=== PATIENT | female | born 1950 | race Caucasian/White ===

== ENCOUNTER 2020-05-17 19:03 | Inpatient (IN) | payer MEDICARE, OTHER ==
[2020-05-17] VITALS (10 sets, daily range): BP systolic 88–98; BP diastolic 55–62
[~2020-05-17] VITALS: Ht 152 cm; Wt 71.8 kg
[2020-05-17] MEDS ORDERED: NS IV 1000 ML 1,000 ML IV SCH (20:17)
[2020-05-17] MEDS ORDERED: MELATONIN 3 MG TABLET PO PRN (20:30)
[2020-05-17] MEDS ORDERED: LOPERAMIDE 2 MG (IMODIUM) TABLET PO PRN (20:30)
[2020-05-17] MEDS ORDERED: CALCIUM CARBONATE 500 MG (TUMS) TAB.CHEW PO PRN (20:30)
[2020-05-17] MEDS ORDERED: ONDANSETRON 4 MG/2 ML (SDV) Z0FRAN IVP PRN (20:30)
[2020-05-17] MEDS ORDERED: diphenhydrAMINE 25 MG TAB (BENADRYL) PO PRN (20:30)
[2020-05-17] MEDS ORDERED: fentaNYL INJECTION 100 MCG/2 ML AMP IVP PRN (20:30)
[2020-05-17] MEDS ORDERED: ACETAMINOPHEN 500 MG TAB (TYLENOL) PO PRN (20:30)
[2020-05-17] MEDS ORDERED: DOCUSATE SODIUM 100 MG (COLACE) CAP PO PRN (20:30)
[2020-05-17] MEDS ORDERED: HYDROcodone/APAP 5 MG/325 MG (LORTAB) TAB PO PRN (20:30)
[2020-05-17] MEDS ORDERED: ENOXAPARIN 40 MG/0.4 ML (LOVENOX) SYR SC SCH (20:30)
[2020-05-17] MEDS ORDERED: ONDANSETRON 4 MG (ZOFRAN) ORAL DISSOLVE TAB PO PRN (20:30)
--- NOTE | 2020-05-17 20:50 | NUR ---
IAN LEÓN admitted to room 512-1, with an admitting diagnosis of Fever of unknown origin, on 05/17/20 from [place] ED via stretcher, accompanied by EMS staff.IAN LEÓN introduced to surroundings, call light, bed controls, phone, TV, temperature control, lights, meal times, smoking policy, visitor policy, side rail policy, bathrooms and showers. Patient Rights given to patient in the handbook. IAN LEÓN verbalizes understanding that [facility] is not responsible for the loss or damage to any personal effects or valuables that are kept in the patients possession during their hospitalization. The following Patient Care Plans were discussed with the patient: Discharge Planning, pain,activity, and diet. IAN LEÓN verbalizes understanding of Interdisciplinary Patient Education. Patient and/or family were informed about the Rapid Response Team and its purpose.
[2020-05-17] MEDS: SENNA W/DOCUSATE (SENOKOT S) TABLET PO SCH (21:04)
[2020-05-17] MEDS: polyethylene glycoL POWDER 17 GM (MIRALAX) PACK PO SCH (21:04)
[2020-05-17] MEDS ORDERED: cefTRIAXone 2 GM IV (ROCEPHIN) VIAL ONE (21:23)
[2020-05-17] MEDS ORDERED: WATER (STERILE) FOR INJECTION 0 ML ONE (21:23)
[2020-05-17] MEDS ORDERED: ENOXAPARIN 40 MG/0.4 ML (LOVENOX) SYR ONE (21:24)
[2020-05-17] MEDS ORDERED: NS IV 1000 ML 1,000 ML ONE (21:24)
[2020-05-17] MEDS: cefTRIAXone FOR IV USE 2,000 MG in WATER (STERILE) FOR INJECTION 20 ML IV SCH (21:33)
[2020-05-17 22:25] LABS: HEMOGLOBIN 11.7 G/DL (11.5-16.0); MEAN PLATELET VOLUME 11.3 FL (7.4-10.4); RED CELL DISTRIBUTION WIDTH 14.9 % (10.0-14.5); WHITE BLOOD COUNT 7.5 10^3/uL (4.3-11.0)
[2020-05-17 22:26] LABS: BILIRUBIN,URINE NEGATIVE (NEGATIVE); CLARITY,URINE CLEAR; COLOR,URINE YELLOW; GLUCOSE, URINE (UA) NEGATIVE (NEGATIVE); KETONES,URINE NEGATIVE (NEGATIVE); LEUKOCYTE ESTERASE ,URINE NEGATIVE (NEGATIVE); NITRITE,URINE NEGATIVE (NEGATIVE); PH,URINE 5.5 (5-9); PROTEIN,URINE NEGATIVE (NEGATIVE)
[2020-05-17 22:33] LABS: ALBUMIN 3.8 GM/DL (3.2-4.5); POTASSIUM 4.7 MMOL/L (3.6-5.0)
[2020-05-17 22:36] LABS: TOTAL PROTEIN 7.2 GM/DL (6.4-8.2)
[2020-05-17 22:37] LABS: BACTERIA,URINE TRACE /HPF
[2020-05-17 22:38] LABS: BILIRUBIN,TOTAL 0.3 MG/DL (0.1-1.0)
[2020-05-17 22:39] LABS: CREATININE SERUM 2.58 MG/DL (0.60-1.30)
--- NOTE | 2020-05-17 22:58 | NUR ---
Positive Covid 19, other labs and VS reported to Dr Lehman at this time. No new orders.
[2020-05-17] MEDS ORDERED: RT-ALBUTEROL INHALER HFA (VENTOLIN HFA) 18 GM IH PRN (23:30)
[2020-05-18] VITALS (18 sets, daily range): BP systolic 92–135; BP diastolic 51–74
[2020-05-18 03:54] LABS: BASOPHILS % (AUTO) 0 % (0-10); EOSINOPHILS % (AUTO) 0 % (0-10); HEMATOCRIT 32 % (35-52); HEMOGLOBIN 10.7 G/DL (11.5-16.0); LYMPHOCYTES # (AUTO) 0.7 X 10^3 (1.0-4.0); LYMPHOCYTES % (AUTO) 11 % (12-44); MEAN CORPUSCULAR HEMOGLOBIN 32 PG (25-34); MEAN CORPUSCULAR HGB CONC 34 G/DL (32-36); MEAN CORPUSCULAR VOLUME 96 FL (80-99); MEAN PLATELET VOLUME 11.1 FL (7.4-10.4); MONOCYTES % (AUTO) 18 % (0-12); NEUTROPHILS # (AUTO) 4.2 X 10^3 (1.8-7.8); NEUTROPHILS % (AUTO) 71 % (42-75); PLATELET COUNT 188 10^3/uL (130-400); RED CELL DISTRIBUTION WIDTH 15.2 % (10.0-14.5); WHITE BLOOD COUNT 5.9 10^3/uL (4.3-11.0)
[2020-05-18 04:04] LABS: ALBUMIN 3.6 GM/DL (3.2-4.5); POTASSIUM 4.6 MMOL/L (3.6-5.0)
[2020-05-18 04:05] LABS: CALCIUM 8.4 MG/DL (8.5-10.1)
[2020-05-18 04:06] LABS: TOTAL PROTEIN 6.7 GM/DL (6.4-8.2)
[2020-05-18 04:08] LABS: BILIRUBIN,TOTAL 0.2 MG/DL (0.1-1.0)
[2020-05-18 04:10] LABS: CREATININE SERUM 2.62 MG/DL (0.60-1.30)
[2020-05-18] MEDS ORDERED: LACTATED RINGERS 1,000 ML IV SCH (05:30)
[2020-05-18] MEDS ORDERED: SODIUM BICARB 8.4% 50 MEQ/50 ML VIAL IV ONE (05:30)
--- NOTE | 2020-05-18 05:31 | Pulmonary Consultation ---
History of Present Illness History of Present Illness Date Seen by Provider: May 18, 2020 Time Seen by Provider: 05:26 Date of Admission Allergies and Home Medications Allergies Coded Allergies: hydrocodone (Verified Allergy, Severe, Vomiting, 05/17/20) Past Rumvtai-Jmwhjs-Tudghm Hx Patient Social History Recent Foreign Travel: No Contact w/Someone Who Travel: No Recent Infectious Disease Expo: No Immunizations Up To Date Date of Pneumonia Vaccine: May 23, 2019 Past Medical History : No Family Medical History Diabetes mellitus 19 MOTHER, , Onset: G8 BROTHER, Onset: FH: leukemia 19 FATHER, , Onset:60 years & older Review of Systems Time Seen by Provider: 05:41 Sepsis Event Evaluation Height, Weight, BMI Height: '" Weight: lbs. oz. kg; 29.08 BMI Method: Exam Exam Vital Signs Date Time Temp Pulse Resp B/P (MAP) Pulse Ox O2 Delivery O2 Flow Rate FiO2 05/18/20 03:55 37.0 73 20 92/56 (68) 98 Room Air 05/18/20 03:25 97 Room Air 05/18/20 01:40 36.9 62 17 92/51 (65) 100 Room Air 05/18/20 01:00 70 05/17/20 23:10 98 Room Air 05/17/20 23:10 38.0 62 95 21 05/17/20 23:00 37.6 62 20 88/55 (66) 98 Room Air 05/17/20 22:00 62 20 91/59 (70) 95 Room Air 05/17/20 21:45 71 18 90/60 (70) 96 Room Air 05/17/20 21:30 64 20 89/62 (71) 97 Room Air 05/17/20 21:15 65 17 90/59 (69) 96 Room Air 05/17/20 21:11 38.0 68 18 98/60 95 Room Air 05/17/20 21:00 62 20 95/61 (72) 95 Room Air 05/17/20 20:58 84 05/17/20 20:50 98 Room Air 05/17/20 20:50 38.0 68 18 98/60 (73) 95 Room Air I & O 05/18/20 07:00 Intake Total 95 ml Output Total 200 ml Balance -105 ml Height & Weight Height: '" Weight: lbs. oz. kg; 29.08 BMI Method: Results Lab Laboratory Tests 05/17/20 22:10 05/18/20 03:40 Assessment/Plan Assessment/Plan COVID + -PT is not currently requiring oxygen currently -PT is having rigors -Check ddimer and ferritin -PCT is elevated -CXR is pending Prerenal ARF with anion gapped metabolic acidosis -repeat LA -Check mag and phos -Check urine Na, Cr, urea, and eosinophills -Check bilateral renal US. -Increase IVF and give a liter bolus -monitor close -Give 2 amps of bicarb -May need to start bicarb gtt. -repeat labs at 1300 Hypotension -Increase IVF -Check LA -Transfer to ICU Hyponatremia -monitor Anemia -Monitor Transfer to ICU for close monitoring. SHON DERAS DO May 18, 2020 05:31
[2020-05-18 05:52] LABS: PHOSPHORUS 5.9 MG/DL (2.3-4.7)
[2020-05-18] MEDS: LACTATED RINGERS 1,000 ML IV SCH ×3 (06:08→19:38)
[2020-05-18 06:41] LABS: ABG BASE EXCESS 6.2 MMOL/L (-2.5-2.5); ABG OXYGEN SATURATION 97 % (94-100); ABG PCO2 34 MMHG (35-45); ABG PH 7.55 (7.37-7.43); ABG PO2 67 MMHG (79-93); ABG TCO2 30.2 MMOL/L (21.0-31.0)
[2020-05-18 06:47] LABS: ALLENS TEST YES-POS; INSPIRED O2 RA; PATIENT TEMP 36.7; VENTILATOR NO
--- NOTE | 2020-05-18 08:18 | NUR ---
Received dietary consult for MST score. Note pt is COVID-19 positive, per chart review. Will monitor PO intake and have assessment at a later date. Sowmya Fowler, MS, RD, LD
--- NOTE | 2020-05-18 08:26 | Diagnostic Imaging Report ---
INDICATION: Fever. COMPARISON: None FINDINGS: Single frontal radiographic view of the chest was obtained and demonstrates moderate cardiomegaly and mild vascular congestion. Lungs are clear. There is no focal consolidation, large effusion, nor pneumothorax. Osseous structures show no gross acute abnormalities. Left-sided AICD is noted. IMPRESSION: 1. Moderate cardiomegaly and mild vascular congestion. Dictated by: Dictated on workstation # [id number]
[2020-05-18] MEDS: SENNA W/DOCUSATE (SENOKOT S) TABLET PO SCH ×2 (08:52→19:39)
[2020-05-18] MEDS: polyethylene glycoL POWDER 17 GM (MIRALAX) PACK PO SCH ×2 (08:52→19:39)
--- NOTE | 2020-05-18 09:41 | Diagnostic Imaging Report ---
INDICATION: Acute renal failure. PROCEDURE: Ultrasound abdomen complete. TECHNIQUE: Multiple real-time grayscale images were obtained of the abdomen in various projections. The liver is normal in size at 14 cm. No discrete liver mass is detected. The portal vein is patent and shows normal direction of flow. Gallbladder surgically absent. No biliary duct dilatation is seen. Pancreas is obscured by bowel gas. Spleen is normal in size at 10 cm. Majority of the aorta is obscured by bowel gas. IVC is patent. Kidneys are without calculi or hydronephrosis. There is no ascites. IMPRESSION: 1. Somewhat compromised study due to overlying bowel gas. No acute features detected. Dictated by: Dictated on workstation # [id number]
[2020-05-18] MEDS: CALCIUM ACETATE 667 MG CAP (PHOSLO) PO SCH ×3 (10:42→18:08)
[2020-05-18] MEDS: dexAMETHasone 6 MG TAB (DECADRON) PO SCH (10:42)
--- NOTE | 2020-05-18 11:00 | NUR ---
I contacted pts RN and requested they convey [facility] availability via phone if the pt or family had a need.
[2020-05-18] MEDS ORDERED: WARF4TAB70 PO (15:18)
[2020-05-18] MEDS ORDERED: INSU100I14 SC (15:18)
[2020-05-18] MEDS ORDERED: LORA10TA7 PO (15:18)
[2020-05-18] MEDS ORDERED: ALLO300T2 PO (15:18)
[2020-05-18] MEDS ORDERED: CALC10009 PO (15:18)
[2020-05-18] MEDS ORDERED: WARF1TAB82 PO (15:18)
[2020-05-18] MEDS ORDERED: CARV3.122 PO (15:18)
[2020-05-18] MEDS ORDERED: SODI325T PO (15:18)
[2020-05-18] MEDS ORDERED: OMEG-35 PO (15:18)
[2020-05-18] MEDS ORDERED: POTA10TA PO (15:18)
[2020-05-18] MEDS ORDERED: FURO40TA4 PO (15:18)
[2020-05-18] MEDS ORDERED: LISI-556 PO (15:18)
[2020-05-18] MEDS ORDERED: ACET325C7 PO (15:18)
[2020-05-18] MEDS ORDERED: FERR325T18 PO (15:18)
[2020-05-18] MEDS ORDERED: PRAV40TA2 PO (15:18)
[2020-05-18] MEDS ORDERED: CHOL100048 PO (15:18)
[2020-05-18] MEDS ORDERED: SPIR25TA5 PO (15:18)
--- NOTE | 2020-05-18 15:20 | NUR ---
SPOKE WITH THE PT (I CALLED HER ROOM PHONE), WENT THRU THE EXT MED HISTORY AND CALLED [facility] IN [place] TO COMPLETE THE MED REC THE PT WAS ABLE TO TELL ME THE NAMES OF SOME OF HER MEDICATIONS AND I WENT THRU THE EXT MED HISTORY AND WAS ABLE TO NAME MEDICATIONS SHE FORGOT. PT WAS ABLE TO TELL ME HOW/WHEN SHE TAKES EACH MEDICATION. ACCORDING TO THE PT SHE TAKES LANTUS SOLOSTAR PENS 55 UNITS HS, HOWEVER HER PREFERRED PHARMACY HAS NEVER FILLED THIS (IN SEP 2019 THEY RECEIVED AN ORDER FROM ARNALDO MORENO BUT IT WASNT COVERED BY INSURANCE). I CALLED [facility] IN [place] TO SEE IF THEY HAVE EVER DISPENSED THIS TO THE PT AND THEY DONT HAVE ANY RECORD OF GIVING IT TO HER THROUGH THE REPOSITORY OR PALS. I TRIED TO CALL THE PATIENT BACK TO GET CLARIFICATION BUT THE LINE IS BUSY. UNTIL I CAN SPEAK WITH THE PT I WILL NOT ADD THIS TO THE MED REC OTC MEDS: VIT D TYLENOL DAVID PT WAS BROUGHT HERE FROM [facility] IN [place] AND THE PACKET THAT CAME WITH HER HAD A MEDICATION LIST- METOLAZONE AND ULORIC WERE LISTED HOWEVER PT IS NO LONGER TAKING THESE Addendum: 05/19/20 at 1151 by DIANE YEPEZ [facility] I WAS ABLE TO REACH THE PT TODAY (VIA HER ROOM PHONE) AND GOT CLARIFICATION ON LANTUS. PATIENT SAYS SHE GETS IT FROM A FAMILY FRIEND IN [place], [place] WHO GETS HER PRESCRIPTION FROM THE PA AND HAS AN OVERSTOCK AMOUNT AND THEREFORE GIVES SOME TO IAN.
[2020-05-18 15:37] LABS: ALBUMIN 3.3 GM/DL (3.2-4.5); BILIRUBIN,TOTAL 0.3 MG/DL (0.1-1.0); CALCIUM 8.6 MG/DL (8.5-10.1); CREATININE SERUM 1.81 MG/DL (0.60-1.30); POTASSIUM 4.4 MMOL/L (3.6-5.0); TOTAL PROTEIN 6.3 GM/DL (6.4-8.2)
[2020-05-18] MEDS ORDERED: WATER (STERILE) FOR INJECTION 20 ML ONE (20:00)
[2020-05-18] MEDS ORDERED: cefTRIAXone 2 GM IV (ROCEPHIN) VIAL ONE (20:00)
[2020-05-18] MEDS: cefTRIAXone FOR IV USE 2,000 MG in WATER (STERILE) FOR INJECTION 20 ML IV SCH (20:21)
[2020-05-18] MEDS: inSUlin ASPART (NovoLOG) 1 UNIT/0.01 ML (CHARGE PER UNIT) SC SCH (20:23)
[2020-05-18] MEDS ORDERED: ENOXAPARIN 30 MG/0.3 ML (LOVENOX) SYR SC SCH (21:00)
[2020-05-19] VITALS (12 sets, daily range): BP systolic 95–151; BP diastolic 63–76
[2020-05-19] MEDS: LACTATED RINGERS 1,000 ML IV SCH ×4 (02:11→18:28)
[2020-05-19 02:47] LABS: BASOPHILS % (AUTO) 0 % (0-10); EOSINOPHILS % (AUTO) 0 % (0-10); HEMATOCRIT 35 % (35-52); HEMOGLOBIN 11.6 G/DL (11.5-16.0); LYMPHOCYTES # (AUTO) 0.5 X 10^3 (1.0-4.0); LYMPHOCYTES % (AUTO) 9 % (12-44); MEAN CORPUSCULAR HEMOGLOBIN 32 PG (25-34); MEAN CORPUSCULAR HGB CONC 33 G/DL (32-36); MEAN CORPUSCULAR VOLUME 95 FL (80-99); MEAN PLATELET VOLUME 11.4 FL (7.4-10.4); MONOCYTES # (AUTO) 0.6 X 10^3 (0.0-1.0); MONOCYTES % (AUTO) 11 % (0-12); NEUTROPHILS # (AUTO) 4.4 X 10^3 (1.8-7.8); NEUTROPHILS % (AUTO) 80 % (42-75); PLATELET COUNT 164 10^3/uL (130-400); RED CELL DISTRIBUTION WIDTH 14.7 % (10.0-14.5); WHITE BLOOD COUNT 5.4 10^3/uL (4.3-11.0)
[2020-05-19 02:52] LABS: CALCIUM 8.5 MG/DL (8.5-10.1)
[2020-05-19 02:57] LABS: CREATININE SERUM 1.43 MG/DL (0.60-1.30); PHOSPHORUS 3.4 MG/DL (2.3-4.7)
[2020-05-19 02:59] LABS: MAGNESIUM 1.8 MG/DL (1.6-2.4)
--- NOTE | 2020-05-19 05:14 | Pulmonary Progress Note ---
Subjective Time Seen by a Provider: 05:18 Subjective/Events-last exam No complications noted. Sepsis Event Evaluation Height, Weight, BMI Height: '" Weight: lbs. oz. kg; 29.08 BMI Method: Focused Exam Lactate Level 05/17/20 22:10: Lactic Acid Level 0.85 05/18/20 06:00: Lactic Acid Level 1.03 Exam Exam Vital Signs Date Time Temp Pulse Resp B/P (MAP) Pulse Ox O2 Delivery O2 Flow Rate FiO2 05/19/20 03:05 92 Room Air 05/19/20 03:00 79 27 124/73 (90) 95 Room Air 05/19/20 02:00 36.6 Room Air 05/19/20 02:00 80 18 123/63 (83) 93 Room Air 05/19/20 01:00 82 28 126/68 (87) 94 Room Air 05/19/20 01:00 85 05/19/20 00:00 72 18 123/63 (83) 97 Room Air 05/18/20 23:05 96 Room Air 05/18/20 23:00 36.8 85 14 126/68 (87) 95 Room Air 05/18/20 22:00 81 29 118/64 (82) 94 Room Air 05/18/20 21:00 84 28 124/59 (80) 94 Room Air 05/18/20 20:00 90 20 126/64 (84) 95 Room Air 05/18/20 19:30 98 Room Air 05/18/20 19:00 88 05/18/20 19:00 37.1 89 22 129/70 (89) 98 Room Air 05/18/20 18:00 90 22 123/70 (87) 94 Room Air 05/18/20 17:00 86 30 134/74 (94) 96 Room Air 05/18/20 16:00 92 31 135/74 (94) 95 Room Air 05/18/20 15:58 Room Air 05/18/20 15:57 37.2 05/18/20 15:00 93 18 121/59 (79) 96 Room Air 05/18/20 14:00 94 16 106/71 (83) 96 Room Air 05/18/20 13:15 96 05/18/20 13:00 78 24 126/74 (91) 94 Room Air 05/18/20 12:16 37.0 89 95 21 05/18/20 12:16 95 Room Air 05/18/20 12:00 37.1 05/18/20 12:00 Room Air 05/18/20 12:00 87 21 120/68 (85) 95 Room Air 05/18/20 11:00 82 24 121/71 (88) 95 Room Air 05/18/20 10:30 87 20 129/54 (79) 97 Room Air 05/18/20 08:48 37.0 05/18/20 08:15 80 18 130/74 (92) 99 Room Air 05/18/20 08:00 Room Air 05/18/20 08:00 Room Air 05/18/20 07:01 79 I & O 05/19/20 07:00 Intake Total 4490 ml Output Total 950 ml Balance 3540 ml Height & Weight Height: '" Weight: lbs. oz. kg; 29.08 BMI Method: General Appearance: No Apparent Distress, WD/WN HEENT: PERRL/EOMI, TMs Normal, Normal ENT Inspection Neck: Full Range of Motion, Normal Inspection, Non Tender, Supple Respiratory: Chest Non Tender, Lungs Clear, Normal Breath Sounds, No Accessory Muscle Use, No Respiratory Distress Cardiovascular: Regular Rate, Rhythm, No Edema Capillary Refill: Less Than 3 Seconds Gastrointestinal: normal bowel sounds, non tender, soft Extremity: Normal Capillary Refill, Normal Inspection, No Pedal Edema Neurologic/Psychiatric: Alert, Oriented x3 Skin: Normal Color, Warm/Dry Lymphatic: No Adenopathy Results Lab Laboratory Tests 05/17/20 22:10 05/18/20 03:40 05/18/20 15:00 05/19/20 02:25 Assessment/Plan Assessment/Plan COVID + -PT is not currently requiring oxygen currently -Decadron -Convalescent plasma -- is ordered not yet given. -PCT- repeat Prerenal ARF with anion gapped metabolic acidosis -Continue LR at 150 -Nornal LA -monitor close Hypotension - improved -Increase IVF Hyponatremia -monitor Anemia -Monitor GI/DVT PPX -Renal function improved. Will increase lovenox back to 40mg subQ daily Pt appears to be stable. Will transfer her to [address] [place] [address] with tele. SHON DERAS DO May 19, 2020 05:14
[2020-05-19] MEDS: dexAMETHasone 6 MG TAB (DECADRON) PO SCH (05:28)
[2020-05-19] MEDS: inSUlin ASPART (NovoLOG) 1 UNIT/0.01 ML (CHARGE PER UNIT) SC SCH ×4 (05:28→20:21)
[2020-05-19] MEDS: SENNA W/DOCUSATE (SENOKOT S) TABLET PO SCH ×2 (07:59→20:19)
[2020-05-19] MEDS: polyethylene glycoL POWDER 17 GM (MIRALAX) PACK PO SCH ×2 (07:59→20:19)
[2020-05-19] MEDS: CALCIUM ACETATE 667 MG CAP (PHOSLO) PO SCH ×3 (08:39→18:27)
--- NOTE | 2020-05-19 09:44 | NUR ---
pt transferred from icu. this rn received report from jaron supervisor agricultural education. pt in room now eating breakfast, no complaints.
[2020-05-19] MEDS ORDERED: INSU100V6 SQ (11:48)
--- NOTE | 2020-05-19 12:00 | NUR ---
DR DERAS NOTIFIED THAT PTS BLOOD SUGAR IS AT 434. DR DERAS ORDERED 10 U LEVEMIR TO ADMIN NOW, ONE TIME; THEN AN ORDER FOR LEVEMIR 10 U TO BE GIVEN SCHEDULED QD @ HS. HE ALSO ORDERED FOR PT TO HAVE ACCUCHECK Q4H WITH S/S ICU. ALSO ORDERED TO PUT PT ON A DIABETIC DIET SINCE SHE WAS ON A REGULAR AT THIS TIME. THIS RN PUT IN ORDERS AND LET PT KNOW NEW ORDERS.
--- NOTE | 2020-05-19 14:57 | NUR ---
"RD ASSESSMENT PMHx: no significant PMH, Pt is COVID-19 positive PT INTERACTION: Received dietary consult for MST score. Note pt is COVID-19 positive, per chart review. Note all diet information gathered is per chart review. Note avg PO intake 25-50% x1d. Note last BM was 05/19, and pt currently on bowel regimen of senna BID; and miralax BID. Note unable to determine recent wt hx. Note pt had BMI of 30.7 (Obese class I for age). Note at this time, unable to determine if pt meets criteria for malnutrition per ASPEN guidelines. ABNORMAL NUTRITION-RELATED LAB VALUES LOW: Na 134; HIGH: glu 284; BUN 52; cr 1.43 Est. kcal needs: 1425 kcal | 20 kcal/kg Est. Pro needs: 57 g Pro | 0.8 g Pro/kg PES STATEMENT: Inadequate oral intake (NI-2.1) related to loss of appetite as evidenced by chart review | avg PO intake 25-50% x1d INTERVENTION: Continue with current diet order of Regular diet. Pt may benefit from nutrition supplementation if PO intake remains low. Would encourage pt to eat when able. Will continue to follow and reassess as pt needs, intake, and status change. MONITOR/EVALUATE: PO Intake; Plan of Care; Hydration Status; Weight Status; Lab Values Sowmya Fowler, , RD, LD"
[2020-05-19] MEDS ORDERED: ENOXAPARIN 40 MG/0.4 ML (LOVENOX) SYR SC SCH (21:00)
[2020-05-20] VITALS (7 sets, daily range): BP systolic 116–172; BP diastolic 64–83
[2020-05-20] MEDS: inSUlin ASPART (NovoLOG) 1 UNIT/0.01 ML (CHARGE PER UNIT) SC SCH ×6 (00:01→20:19)
[2020-05-20] MEDS: LACTATED RINGERS 1,000 ML IV SCH (04:23)
[2020-05-20] MEDS: dexAMETHasone 6 MG TAB (DECADRON) PO SCH (06:25)
--- NOTE | 2020-05-20 06:33 | NUR ---
DR. APPLE NOTIFIED OF PT FEELING WORN OUT AND SOA FROM HAVING TO GET UP TO USE THE RESTROOM FREQUENTLY. NEW ORDERS RECIEVED TO D/C LR AT 150/HR. WILL CONTINUE TO MONITOR.
[2020-05-20 07:03] LABS: BASOPHILS % (AUTO) 0 % (0-10); EOSINOPHILS % (AUTO) 0 % (0-10); HEMATOCRIT 32 % (35-52); HEMOGLOBIN 10.6 G/DL (11.5-16.0); LYMPHOCYTES # (AUTO) 0.6 X 10^3 (1.0-4.0); LYMPHOCYTES % (AUTO) 4 % (12-44); MEAN CORPUSCULAR HEMOGLOBIN 32 PG (25-34); MEAN CORPUSCULAR HGB CONC 34 G/DL (32-36); MEAN CORPUSCULAR VOLUME 95 FL (80-99); MEAN PLATELET VOLUME 11.3 FL (7.4-10.4); MONOCYTES # (AUTO) 0.8 X 10^3 (0.0-1.0); MONOCYTES % (AUTO) 6 % (0-12); NEUTROPHILS # (AUTO) 13.4 X 10^3 (1.8-7.8); NEUTROPHILS % (AUTO) 90 % (42-75); PLATELET COUNT 198 10^3/uL (130-400); RED CELL DISTRIBUTION WIDTH 14.8 % (10.0-14.5); WHITE BLOOD COUNT 14.9 10^3/uL (4.3-11.0)
[2020-05-20 07:21] LABS: CALCIUM 8.7 MG/DL (8.5-10.1); CREATININE SERUM 1.56 MG/DL (0.60-1.30); MAGNESIUM 1.6 MG/DL (1.6-2.4); PHOSPHORUS 2.5 MG/DL (2.3-4.7); POTASSIUM 4.8 MMOL/L (3.6-5.0)
[2020-05-20 07:45] LABS: LYMPHOCYTES % (MANUAL) 4 %; MONOCYTES % (MANUAL) 7 %; NEUTROPHILS % (MANUAL) 89 %
[2020-05-20 07:46] LABS: RBC MORPH NORMAL
[2020-05-20] MEDS: CALCIUM ACETATE 667 MG CAP (PHOSLO) PO SCH ×3 (09:03→17:17)
[2020-05-20] MEDS: polyethylene glycoL POWDER 17 GM (MIRALAX) PACK PO SCH ×2 (09:03→20:20)
[2020-05-20] MEDS: SENNA W/DOCUSATE (SENOKOT S) TABLET PO SCH ×2 (09:03→20:19)
--- NOTE | 2020-05-20 12:52 | Progress Note - Hospitalist ---
Subjective HPI/CC On Admission Date Seen by Provider: May 20, 2020 Time Seen by Provider: 12:44 Subjective/Events-last exam Pt reports feeling better today. Just got out of the shower. Still dyspneic with ambulation but overall improving. Focused Exam Lactate Level 05/17/20 22:10: Lactic Acid Level 0.85 05/18/20 06:00: Lactic Acid Level 1.03 Objective Exam Vital Signs Vital Signs Date Time Temp Pulse Resp B/P (MAP) Pulse Ox O2 Delivery O2 Flow Rate FiO2 05/20/20 09:00 Room Air 05/20/20 08:29 95 2.00 05/20/20 08:00 36.8 101 20 116/64 (81) 05/18/20 12:16 21 Capillary Refill : Less Than 3 Seconds General Appearance: No Apparent Distress, Chronically ill Respiratory: Lungs Clear, No Accessory Muscle Use, Other (nasal cannula) Cardiovascular: Regular Rate, Rhythm, No Murmur Neurologic/Psychiatric: Alert, Oriented x3 Results/Procedures Lab Laboratory Tests 05/20/20 06:52 Patient resulted labs reviewed. Assessment/Plan Assessment and Plan Assess & Plan/Chief Complaint COVID + -Wean off oxygen as able -Continue Decadron -Convalescent plasma, await arrival Prerenal ARF superimposed on CKD HAGMA- resolved - monitor close - DC IVF - Resume her bicarb CHF Chronic anticoagulation HLD HTN s/p defibrillator placement BNP up Lasix with blood today Hold BP meds for normal BPs Increase lovenox to therapeutic dosing, check INR in AM and resume warfarin IDDMII - Continue SSI, increase Levemir Hypotension, resolved Hyponatremia -monitor, stable Anemia -Monitor, stable GI/DVT PPX -Lovenox Diagnosis/Problems Diagnosis/Problems (1) COVID-19 (2) HTN (hypertension) (3) CHF (congestive heart failure) (4) Insulin dependent diabetes mellitus (5) CKD (chronic kidney disease) (6) CAD (coronary artery disease) (7) Chronic anticoagulation (8) Hyponatremia (9) Hypoxia Clinical Quality Measures DVT/VTE Risk/Contraindication: Risk Factor Score Per Nursin RFS Level Per Nursing on Admit: 4+=Very High DREW APPLE MD May 20, 2020 12:52
[2020-05-20] MEDS ORDERED: FUROSEMIDE 40 MG/4 ML INJ (LASIX) IVP PRN (13:00)
[2020-05-20] MEDS ORDERED: ENOXAPARIN 100 MG/1 ML (LOVENOX) SYR SC SCH (13:15)
[2020-05-20] MEDS ORDERED: NS IV 500 ML 500 ML ONE (13:51)
[2020-05-20] MEDS ORDERED: NS 50 ML (IVPB) BAG IV ONE (14:00)
[2020-05-20] MEDS: ENOXAPARIN 80 MG/0.8 ML (LOVENOX) SYR SC SCH (14:14)
--- NOTE | 2020-05-20 18:26 | NUR ---
PT HAD INCREASED CONFUSION AFTERNOON PROGRESSED. SHE WAS UP AMBULATING IN ROOM UNASSISTED AND ACTED LIKE SHE DID NOT KNOW STAFF OR WHERE SHE WAS. PT DID TELL THIS RN HER NAME, YEAR AND CITY, HOWEVER SHE SAID SHE WAS HERE DUE TO A FALL. THIS RN REMINDED HER OF COVID AND SHE SAID SHE FORGOT ABOUT IT. SHE ALSO C/O SOB. RN APPLIED O2 AND HER SATS WERE AT 99 %. DR APPLE NOTIFIED AND ORDERED UA AND ABG'S. RT NOTIFIED AND HAT AND SAMPLE CUP IN BATHROOM.
[2020-05-20 19:31] LABS: ABG BASE EXCESS -1.8 MMOL/L (-2.5-2.5); ABG OXYGEN SATURATION 96 % (94-100); ABG PCO2 33 MMHG (35-45); ABG PH 7.44 (7.37-7.43); ABG PO2 96 MMHG (79-93); ABG TCO2 22.7 MMOL/L (21.0-31.0)
[2020-05-20 19:32] LABS: ALLENS TEST POSITIVE]; INSPIRED O2 2; PATIENT TEMP 37.6; VENTILATOR NO
[2020-05-20] MEDS: SIMvastatin 20 MG (ZOCOR) TAB PO SCH (20:19)
[2020-05-20] MEDS: SODIUM BICARBONATE 650 MG TABLET (NON-FORMULARY) PO SCH (20:19)
[2020-05-20] MEDS ORDERED: SODIUM BICARBONATE 325 MG PO SCH (21:00)
[2020-05-20] MEDS ORDERED: NON-FORMULARY MEDICATION 1 EA EA (Pravastatin Sodium 40 MG) PO SCH (21:00)
[2020-05-21] VITALS (7 sets, daily range): BP systolic 128–149; BP diastolic 76–91
[2020-05-21] MEDS: inSUlin ASPART (NovoLOG) 1 UNIT/0.01 ML (CHARGE PER UNIT) SC SCH ×7 (00:46→23:47)
[2020-05-21] MEDS: ENOXAPARIN 80 MG/0.8 ML (LOVENOX) SYR SC SCH ×2 (02:18→12:44)
[2020-05-21 02:30] LABS: BILIRUBIN,URINE NEGATIVE (NEGATIVE); CLARITY,URINE CLEAR; COLOR,URINE YELLOW; GLUCOSE, URINE (UA) NEGATIVE (NEGATIVE); KETONES,URINE NEGATIVE (NEGATIVE); LEUKOCYTE ESTERASE ,URINE NEGATIVE (NEGATIVE); NITRITE,URINE NEGATIVE (NEGATIVE); PROTEIN,URINE 2+ (NEGATIVE)
[2020-05-21 02:39] LABS: BACTERIA,URINE TRACE /HPF; HYALINE CASTS, URINE 0-2 /LPF; RBC,URINE 0-2 /HPF; WBC,URINE 0-2 /HPF
[2020-05-21] MEDS: dexAMETHasone 6 MG TAB (DECADRON) PO SCH (06:27)
[2020-05-21] MEDS: SODIUM BICARBONATE 650 MG TABLET (NON-FORMULARY) PO SCH ×2 (09:13→20:03)
[2020-05-21] MEDS: CALCIUM ACETATE 667 MG CAP (PHOSLO) PO SCH ×3 (09:13→17:13)
[2020-05-21] MEDS: SENNA W/DOCUSATE (SENOKOT S) TABLET PO SCH ×2 (09:14→20:04)
[2020-05-21] MEDS: polyethylene glycoL POWDER 17 GM (MIRALAX) PACK PO SCH ×2 (09:14→20:04)
[2020-05-21 09:40] LABS: HEMOGLOBIN 10.6 G/DL (11.5-16.0); MEAN PLATELET VOLUME 11.4 FL (7.4-10.4); RED CELL DISTRIBUTION WIDTH 14.5 % (10.0-14.5); WHITE BLOOD COUNT 17.2 10^3/uL (4.3-11.0)
[2020-05-21 09:56] LABS: CREATININE SERUM 1.9 MG/DL (0.60-1.30); POTASSIUM 5.2 MMOL/L (3.6-5.0)
[2020-05-21] MEDS: ALPRAZolam 0.25 MG (XANAX) TAB PO PRN (12:44)
--- NOTE | 2020-05-21 12:49 | Progress Note - Hospitalist ---
Subjective HPI/CC On Admission Date Seen by Provider: May 21, 2020 Time Seen by Provider: 12:45 Subjective/Events-last exam Pt reports feeling better and breathing better. Just about to eat lunch. Discussed with RN and pt had some sundowning last night. Otherwise no concerns. Objective Exam Vital Signs Vital Signs Date Time Temp Pulse Resp B/P (MAP) Pulse Ox O2 Delivery O2 Flow Rate FiO2 05/21/20 09:00 Room Air 05/21/20 08:00 37.1 110 16 132/76 (94) 97 2.00 05/18/20 12:16 21 Capillary Refill : Less Than 3 Seconds General Appearance: No Apparent Distress, WD/WN Respiratory: Lungs Clear, No Accessory Muscle Use, Other (on nasal cannula) Cardiovascular: Regular Rate, Rhythm, No Murmur Neurologic/Psychiatric: Alert, Oriented x3 Results/Procedures Lab Laboratory Tests 05/21/20 09:25 Patient resulted labs reviewed. Assessment/Plan Assessment and Plan Assess & Plan/Chief Complaint COVID + -Wean off oxygen as able -Continue Decadron -Convalescent plasma given 05/20 Prerenal ARF superimposed on CKD HAGMA- resolved - monitor close - Continue home bicarb - Creatinine slightly up today, trend CHF Chronic anticoagulation HLD HTN s/p defibrillator placement BP trending up, will resume home coreg as she is slightly tachycardiac as well Increase lovenox to therapeutic dosing, INR orderd this AM but not done? unsure why IDDMII - Continue SSI, increase Levemir Hypotension, resolved Hyponatremia -monitor, stable Anemia -Monitor, stable GI/DVT PPX -Lovenox Diagnosis/Problems Diagnosis/Problems (1) COVID-19 (2) HTN (hypertension) (3) CHF (congestive heart failure) (4) Insulin dependent diabetes mellitus (5) CKD (chronic kidney disease) (6) CAD (coronary artery disease) (7) Chronic anticoagulation (8) Hyponatremia (9) Hypoxia Clinical Quality Measures DVT/VTE Risk/Contraindication: Risk Factor Score Per Nursin RFS Level Per Nursing on Admit: 4+=Very High DREW APPLE MD May 21, 2020 12:49
[2020-05-21] MEDS: FUROSEMIDE 40 MG (LASIX) TAB PO SCH (15:20)
--- NOTE | 2020-05-21 15:20 | NUR ---
PT HAS BEEN NAPPING THIS AFTERNOON AND THIS RN HAS BEEN CHECKING ON HER TO SEE IF SHE WAS AWAKE IN ORDER TO GIVE HER LASIX. AT THIS TIME IT IS ALMOST 1530 AND RN AFRAID SHE MED WILL KEEP HER AWAKE. AT THIS TIME PT IS IN BED RESTING WITH EYES CLOSED.
[2020-05-21] MEDS: CARVEDILOL 3.125 MG (COREG) TABLET PO SCH (20:03)
[2020-05-21] MEDS: SIMvastatin 20 MG (ZOCOR) TAB PO SCH (20:03)
[2020-05-22 04:39] VITALS: BP 129/80
[2020-05-22 04:42] LABS: HEMOGLOBIN 10.7 G/DL (11.5-16.0); MEAN PLATELET VOLUME 11.3 FL (7.4-10.4); RED CELL DISTRIBUTION WIDTH 14.6 % (10.0-14.5); WHITE BLOOD COUNT 15.7 10^3/uL (4.3-11.0)
[2020-05-22 04:59] LABS: INR 1.4 (0.8-1.4); PROTHROMBIN TIME PATIENT 17.3 SEC (12.2-14.7)
[2020-05-22] MEDS: inSUlin ASPART (NovoLOG) 1 UNIT/0.01 ML (CHARGE PER UNIT) SC SCH ×5 (05:00→21:15)
[2020-05-22 05:03] LABS: POTASSIUM 4.9 MMOL/L (3.6-5.0)
[2020-05-22 05:04] LABS: CALCIUM 8.9 MG/DL (8.5-10.1)
[2020-05-22 05:08] LABS: CREATININE SERUM 2.14 MG/DL (0.60-1.30)
[2020-05-22] MEDS: dexAMETHasone 6 MG TAB (DECADRON) PO SCH (06:47)
[2020-05-22 07:45] VITALS: BP 126/95
[2020-05-22] MEDS: KCL 10 MEQ TAB (MICRO K) PO SCH (07:57)
[2020-05-22] MEDS: FUROSEMIDE 40 MG (LASIX) TAB PO SCH ×2 (09:01→13:00)
[2020-05-22] MEDS: CARVEDILOL 3.125 MG (COREG) TABLET PO SCH ×2 (09:01→21:16)
[2020-05-22] MEDS: polyethylene glycoL POWDER 17 GM (MIRALAX) PACK PO SCH ×2 (09:01→21:16)
[2020-05-22] MEDS: SODIUM BICARBONATE 650 MG TABLET (NON-FORMULARY) PO SCH ×2 (09:01→21:16)
[2020-05-22] MEDS: SENNA W/DOCUSATE (SENOKOT S) TABLET PO SCH ×2 (09:01→21:16)
[2020-05-22] MEDS: CALCIUM ACETATE 667 MG CAP (PHOSLO) PO SCH ×3 (09:01→18:21)
[2020-05-22 12:08] VITALS: BP 136/84
[2020-05-22] MEDS: ENOXAPARIN 80 MG/0.8 ML (LOVENOX) SYR SC SCH (13:00)
--- NOTE | 2020-05-22 13:58 | Progress Note - Hospitalist ---
Subjective HPI/CC On Admission Date Seen by Provider: May 22, 2020 Time Seen by Provider: 10:40 Subjective/Events-last exam she reports feeling well this morning. She is asking when she can go home. She has been eating and drinking well. She denies any fevers or chills. She denies any shortness of breath. He has no other complaints or concerns. Objective Exam Vital Signs Vital Signs Date Time Temp Pulse Resp B/P (MAP) Pulse Ox O2 Delivery O2 Flow Rate FiO2 05/22/20 12:08 36.8 95 18 136/84 (101) 100 Nasal Cannula 2.00 05/18/20 12:16 21 Capillary Refill : Less Than 3 Seconds General Appearance: No Apparent Distress, WD/WN HEENT: PERRL/EOMI, Pharynx Normal Neck: Normal Inspection, Supple Respiratory: Lungs Clear, Normal Breath Sounds, No Respiratory Distress Cardiovascular: Regular Rate, Rhythm, No Edema, No Murmur Gastrointestinal: Normal Bowel Sounds, Non Tender, Soft Extremity: Normal Inspection, Non Tender, No Pedal Edema Neurologic/Psychiatric: Alert, Oriented x3, No Motor/Sensory Deficits, Normal Mood/Affect Skin: Normal Color, Warm/Dry Results/Procedures Lab Laboratory Tests 05/22/20 04:22 Patient resulted labs reviewed. Imaging: Reviewed Imaging Report Assessment/Plan Assessment and Plan Assess & Plan/Chief Complaint COVID-19 requiring supplemental oxygen with activity Continue Decadron Convalescent plasma given 05/20 WILLAM superimposed on CKD metabolic acidosis Continue home bicarb Creatinine trending up CHF Chronic anticoagulation HLD HTN s/p defibrillator placement BP trending up add clonidine as needed IDDMII Continue SSI and Levemir Anemia Monitor, stable Hyponatremia stable DVT PPX: Lovenox HAGMA, resolved Hypotension, resolved Hyponatremia, resolved Diagnosis/Problems Diagnosis/Problems (1) COVID-19 Status: Acute (2) Acute kidney injury superimposed on chronic kidney disease Status: Acute Clinical Quality Measures DVT/VTE Risk/Contraindication: Risk Factor Score Per Nursin RFS Level Per Nursing on Admit: 4+=Very High JEROD BLAKELY MD May 22, 2020 13:58
--- NOTE | 2020-05-22 14:12 | NUR ---
CM/SS asked nurse to help speak with patient for discharge planning. Updated Address: [address] [place], [place]. Next of Kin: Tip [phone] Person to Notify: [phone] Home: Lives with sister Alyssa and brother Tip. Patient is independent. Will have someone there . Home Health/Paid Caregivers: None Oxygen: On 2L continuous currently. Summary: The patient's nurse visited with patient to assist this sw with discharge planning. The patient's primary care nurse got the address and sister Alyssa's phone number. CM/SS contacted Alyssa to discuss discharge planning. She reports that patient is independent at home but does have some mild confusion from a stroke. Alyssa had many questions regarding Covid and restrictions. CM/SS instructed her to contact the patient's nurse with medical questions. CM/SS discussed the possibility of home health if she needed additional therapy or had a new oxygen need. She verbalized understanding. Alyssa stated that she would like this sw to talk with her brother Tip. He will be the primary person to speak with. CM/SS contacted Tip. He reports that he also lives at home with patient, and Alyssa. CM/SS discussed with him the possible need for home health. He verbalized understanding. CM/SS asked physician to order physical therapy and occupational therapy. CM/SS will continue to follow for discharge planning.
[2020-05-22] MEDS: LACTATED RINGERS 1,000 ML IV SCH (15:14)
--- NOTE | 2020-05-22 15:29 | Physical Therapy Evaluation ---
PT Evaluation-General Medical Diagnosis Admission Date May 17, 2020 at 20:23 Medical Diagnosis: Prerenal ARF with anion gapped metabolic acidosis Onset Date: May 17, 2020 Therapy Diagnosis Therapy Diagnosis: impaired mobility, strength, endurance Precautions Precautions/Isolations: Contact Isolation, Droplet Isolation Referral Physician: Pebbles Reason for Referral: Evaluation/Treatment Medical History Pertinent Medical History: CVA Social History Home: Single Level Current Living Status: Entry Into Home: Ramp Patient states she lives with various family members Prior Prior Level of Function SCALE: Activities may be completed with or without assistive devices. 1-Pdgzegwoli-yqmrlvv completes the activity by him/herself with no assistance from a helper. 5-Set-up or Clean-up Assistance-helper sets up or cleans up; patient completes activity. [place] assists only prior to or following the activity. 4-Supervision or Touching Assistance-helper provides verbal cues and/or touching/steadying and/or contact guard assistance as patient completes ac tivity. Assistance may be provided throughout the activity or intermittently. 3-Partial/Moderate Assistance-helper does LESS THAN HALF the effort. [place] lifts, holds or supports trunk or limbs, but provides less than half the effort. 2-Substantial/Maximal Assistance-helper does MORE THAN HALF the effort. [place] lifts or holds trunk or limbs and provides more than half the effort. 7-Lwikfyvel-cohrod does ALL the effort. Patient does none of the effort to complete the activity. Or, the assistance of 2 or more helpers is required for the patient to complete the activity. If activity was not attempted, code reason: 7-Patient Refused. 9-Not Applicable-not attempted and the patient did not perform the activity before the current illness, exacerbation or injury. 10-Not Attempted due to Environmental Limitations-(lack of equipment, weather restraints, etc.). 88-Not Attempted due to Medical Conditions or Safety Concerns. Bed Mobility: 6 Transfers (B,C,W/C): 6 Gait: 6 Indoor Mobility (Ambulation): Independent Prior Devices Use: Walker PT Evaluation-Current Subjective Patient in recliner pre tx, agrees to PT, has no complaints of pain, patient is SOB and states she just got back to the recliner from the restroom, she recovers after about 30 sec. Proper PPE donned by therapist. Pt/Family Goals to be independent at home Objective Patient Orientation: Person, Place, Situation Attachments: Oxygen ROM/Strength ROM Lower Extremities WNL Strength Lower Extremities 4/5 gross BLE except for left dorsiflexion which is 3/5 Sensory Hearing: Functional Sensation Right Lower Extremit: Intact Sensation Left Lower Extremity: Intact Transfers Sit to Stand (QC): 4 Chair/Vhc-le-Ycyyr Xfer(QC): 4 SBA, cues for hand plancement when standing and sitting Gait Does the Patient Walk?: Yes Mode of Locomotion: Walk Anticipated Mode of Locomotion: Walk Walk 10 feet (QC): 4 Distance: 40' Gait Assistive Device: FWW Comments/Gait Description very slow ambulation, some unsteadiness when turning Balance Sitting Static: Normal Sitting Dynamic: Normal Standing Static: Fair Standing Dynamic: Fair Treatment seated BLE exercises x15 (AP, LAQ) Assessment/Needs Patient has impaired mobility, strength, endurance. Slightly unsteady with turning during ambulation, needs SBA Rehab Potential: Fair PT Senior Living Goals Senior Living Goals PT Senior Living Goals Time Frame: May 29, 2020 Roll Left & Right (QC): 6 Sit to Lying (QC): 6 Lying-Sitting on Side/Bed(QC): 6 Sit to Stand (QC): 6 Chair/Cqn-hi-Oicga Xfer(QC): 6 Walk 10 feet (QC): 6 Walk 50ft with 2 Turns (QC): 6 PT Plan Problem List Problem List: Activity Tolerance, Functional Strength, Safety, Balance, Gait, Transfer, Bed Mobility, ROM Treatment/Plan Treatment Plan: Continue Plan of Care Treatment Plan: Bed Mobility, Education, Functional Activity Linda, Functional Strength, Gait, Safety, Therapeutic Exercise, Transfers Treatment Duration: May 29, 2020 Frequency: 6 times per week Estimated Hrs Per Day: .25 hour per day Patient and/or Family Agrees t: Yes Safety Risks/Education Patient Education: Gait Training, Transfer Techniques, Correct Positioning, Safety Issues Teaching Recipient: Patient Teaching Methods: Demonstration, Discussion Response to Teaching: Reinforcement Needed Discharge Recommendations Plan Patient will perform bed mobility and transfer training, balance and endurance training, functional strengthening, gait training, and education, to improve functional mobility and independence at home. Therapy Discharge Recommendati: Home & Family Time/GCodes Time In: 1500 Time Out: 1512 Total Billed Treatment Time: 12 Total Billed Treatment 1 visit JACQUES 12' OLE DE LUNA PT May 22, 2020 15:29
[2020-05-22] MEDS: warFARin 4 MG (COUMADIN) TAB PO SCH (18:21)
[2020-05-22 20:00] VITALS: BP 136/81
[2020-05-22] MEDS: SIMvastatin 20 MG (ZOCOR) TAB PO SCH (21:16)
[2020-05-22 23:59] VITALS: BP 123/69
[2020-05-23] VITALS (8 sets, daily range): BP systolic 125–133; BP diastolic 73–91
[2020-05-23] MEDS: inSUlin ASPART (NovoLOG) 1 UNIT/0.01 ML (CHARGE PER UNIT) SC SCH ×6 (00:18→21:15)
[2020-05-23] MEDS: LACTATED RINGERS 1,000 ML IV SCH ×2 (00:20→10:02)
[2020-05-23 05:08] LABS: HEMOGLOBIN 10.8 G/DL (11.5-16.0); MEAN PLATELET VOLUME 12.2 FL (7.4-10.4); RED CELL DISTRIBUTION WIDTH 14.4 % (10.0-14.5); WHITE BLOOD COUNT 20.1 10^3/uL (4.3-11.0)
[2020-05-23 05:35] LABS: INR 1.4 (0.8-1.4); POTASSIUM 4.5 MMOL/L (3.6-5.0); PROTHROMBIN TIME PATIENT 17.6 SEC (12.2-14.7)
[2020-05-23 05:36] LABS: CALCIUM 8.6 MG/DL (8.5-10.1)
[2020-05-23 05:40] LABS: CREATININE SERUM 2.31 MG/DL (0.60-1.30)
--- NOTE | 2020-05-23 05:57 | NUR ---
This RN notified Dr. Rivera at 0554 about this pt regarding a critical lab value of a BUN at 106 (previously 86). Dr. Rivera stated she would be in this morning to see the patient. Will continue to monitor pt's status throughout shift.
[2020-05-23] MEDS: dexAMETHasone 6 MG TAB (DECADRON) PO SCH (06:21)
[2020-05-23] MEDS: KCL 10 MEQ TAB (MICRO K) PO SCH (10:01)
[2020-05-23] MEDS: CALCIUM ACETATE 667 MG CAP (PHOSLO) PO SCH ×3 (10:01→17:23)
[2020-05-23] MEDS: ENOXAPARIN 80 MG/0.8 ML (LOVENOX) SYR SC SCH (10:01)
[2020-05-23] MEDS: ALPRAZolam 0.25 MG (XANAX) TAB PO PRN (10:01)
[2020-05-23] MEDS: FUROSEMIDE 40 MG (LASIX) TAB PO SCH ×2 (10:01→14:27)
[2020-05-23] MEDS: CARVEDILOL 3.125 MG (COREG) TABLET PO SCH ×2 (10:01→21:12)
[2020-05-23] MEDS: SODIUM BICARBONATE 650 MG TABLET (NON-FORMULARY) PO SCH ×3 (10:02→21:12)
[2020-05-23] MEDS: polyethylene glycoL POWDER 17 GM (MIRALAX) PACK PO SCH ×2 (10:06→21:15)
[2020-05-23] MEDS: SENNA W/DOCUSATE (SENOKOT S) TABLET PO SCH ×2 (10:06→21:12)
--- NOTE | 2020-05-23 11:29 | Physical Therapy Daily Note ---
PT Daily Note-Current Subjective Patient in recliner pre tx, agrees to PT but is very drowsy and has trouble staying awake, has no complaints of pain. Proper PPE donned by PT. Appearance Patient in recliner post tx with nurse call, phone, tray, all needs met. Mental Status Patient Orientation: Person, Place, Situation Attachments: Oxygen, IV Transfers SCALE: Activities may be completed with or without assistive devices. 1-Phpmgkwczi-edvfevy completes the activity by him/herself with no assistance from a helper. 5-Set-up or Clean-up Assistance-helper sets up or cleans up; patient completes activity. [place] assists only prior to or following the activity. 4-Supervision or Touching Assistance-helper provides verbal cues and/or touching/steadying and/or contact guard assistance as patient completes activity. Assistance may be provided throughout the activity or intermittently. 3-Partial/Moderate Assistance-helper does LESS THAN HALF the effort. [place] lifts, holds or supports trunk or limbs, but provides less than half the effort. 2-Substantial/Maximal Assistance-helper does MORE THAN HALF the effort. [place] lifts or holds trunk or limbs and provides more than half the effort. 3-Wmiycdyja-xnmwix does ALL the effort. Patient does none of the effort to complete the activity. Or, the assistance of 2 or more helpers is required for the patient to complete the activity. If activity was not attempted, code reason: 7-Patient Refused. 9-Not Applicable-not attempted and the patient did not perform the activity before the current illness, exacerbation or injury. 10-Not Attempted due to Environmental Limitations-(lack of equipment, weather restraints, etc.). 88-Not Attempted due to Medical Conditions or Safety Concerns. Sit to Stand (QC): 3 min assist for sit to stand, cues for hand placement Gait Training Distance: 30' Walk 10 feet (QC): 4 Gait Persons Needed: 1 Gait Assistive Device: FWW CGA, very slow ambulation, patient ambulated forward and then back a couple of times due to limitations from her O2 and IV lines. No LOB but slightly unsteady especially when ambulating backwards. Exercises Seated Therapy Exercises: Ankle pumps, Long arc quads Seated Reps: 20 Treatments ambulation, LE exercise Assessment Current Status: Poor Progress very drowsy initially but woke up by the end of tx, unsteady with ambulation PT Fdc Goals Fdc Goals PT Fdc Goals Time Frame: May 29, 2020 Roll Left & Right (QC): 6 Sit to Lying (QC): 6 Lying-Sitting on Side/Bed(QC): 6 Sit to Stand (QC): 6 Chair/Mpc-kv-Vqgwn Xfer(QC): 6 Walk 10 feet (QC): 6 Walk 50ft with 2 Turns (QC): 6 PT Plan Problem List Problem List: Activity Tolerance, Functional Strength, Safety, Balance, Gait, Transfer, Bed Mobility Treatment/Plan Treatment Plan: Continue Plan of Care Treatment Plan: Bed Mobility, Education, Functional Activity Linda, Functional Strength, Gait, Safety, Therapeutic Exercise, Transfers Treatment Duration: May 29, 2020 Frequency: 6 times per week Estimated Hrs Per Day: .25 hour per day Patient and/or Family Agrees t: Yes Safety Risks/Education Patient Education: Gait Training, Transfer Techniques, Correct Positioning, Safety Issues Teaching Recipient: Patient Teaching Methods: Demonstration, Discussion Response to Teaching: Reinforcement Needed Time/GCodes Time In: 1100 Time Out: 1111 Total Billed Treatment Time: 11 Total Billed Treatment 1 visit FA OLE HENDRICKSON PT May 23, 2020 11:29
--- NOTE | 2020-05-23 12:57 | NUR ---
TRUDY/BERT follow up. TRUDY/BERT received a call from patient's sister Alyssa. She reports that she believes the patient is leaving today and will need home health. CM/SS verbalized that this sw will need to speak with patient's physician. She verbalized understanding. The physician reports that patient will not discharge today. TRUDY/SS contacted Tip the patient's brother. He reports that the patient stated she was getting discharged. CM/SS informed Tip that patient was not leaving and she may be having some confusion. He verbalized understanding. Tip reports that he did not receive a call from the nurse yesterday and would still like one today. TRUDY/SS informed the patient's primary care nurse to give Tip a call. She verbalized understanding. Tip had a question regarding obtaining medical records. TRUDY/BERT contacted medical records to get process. TRUDY/BERT will continue to follow.
--- NOTE | 2020-05-23 14:09 | Progress Note - Hospitalist ---
Subjective HPI/CC On Admission Date Seen by Provider: May 23, 2020 Time Seen by Provider: 09:20 Subjective/Events-last exam she feels well today. She still has cough. She denies any shortness of breath. She says she was to go home. Objective Exam Vital Signs Vital Signs Date Time Temp Pulse Resp B/P (MAP) Pulse Ox O2 Delivery O2 Flow Rate FiO2 05/23/20 11:55 34.0 81 18 133/73 (93) 100 Nasal Cannula 3.00 05/18/20 12:16 21 Capillary Refill : Less Than 3 Seconds General Appearance: No Apparent Distress, Chronically ill Respiratory: Lungs Clear, Normal Breath Sounds, No Respiratory Distress Cardiovascular: Regular Rate, Rhythm, No Murmur Gastrointestinal: Normal Bowel Sounds, Non Tender, Soft Extremity: Normal Inspection, Non Tender, Pedal Edema Neurologic/Psychiatric: Alert, Oriented x3, No Motor/Sensory Deficits, Normal Mood/Affect Skin: Normal Color, Warm/Dry Results/Procedures Lab Laboratory Tests 05/23/20 04:45 Patient resulted labs reviewed. Imaging: Reviewed Imaging Report Assessment/Plan Assessment and Plan Assess & Plan/Chief Complaint COVID-19 requiring supplemental oxygen with activity Continue Decadron Convalescent plasma given 05/20 WILLAM superimposed on CKD metabolic acidosis Continue home bicarb and phoslo BUN and creatinine trending up CHF Chronic anticoagulation HLD HTN s/p defibrillator placement BP stable INR 1.4 continue warfarin IDDMII Continue SSI and Levemir Anemia Monitor, stable Hyponatremia stable DVT PPX: Lovenox HAGMA, resolved Hypotension, resolved Hyponatremia, resolved Diagnosis/Problems Diagnosis/Problems (1) COVID-19 Status: Acute (2) Acute kidney injury superimposed on chronic kidney disease Status: Acute Clinical Quality Measures DVT/VTE Risk/Contraindication: Risk Factor Score Per Nursin RFS Level Per Nursing on Admit: 4+=Very High JEROD BLAKELY MD May 23, 2020 14:09
[2020-05-23] MEDS ORDERED: RT-ALBUTEROL INHALER HFA (VENTOLIN HFA) 18 GM IH PRN (17:00)
[2020-05-23] MEDS: warFARin 4 MG (COUMADIN) TAB PO SCH (17:15)
[2020-05-23] MEDS: RT-ALBUTEROL INHALER HFA (VENTOLIN HFA) 18 GM IH SCH (19:25)
[2020-05-23] MEDS: SIMvastatin 20 MG (ZOCOR) TAB PO SCH (21:12)
[2020-05-24] MEDS: inSUlin ASPART (NovoLOG) 1 UNIT/0.01 ML (CHARGE PER UNIT) SC SCH ×5 (00:49→16:10)
[2020-05-24] MEDS: RT-ALBUTEROL INHALER HFA (VENTOLIN HFA) 18 GM IH SCH ×3 (02:34→14:50)
[2020-05-24 03:12] VITALS: BP 127/80
[2020-05-24 04:52] LABS: MEAN PLATELET VOLUME 12.3 FL (7.4-10.4); RED CELL DISTRIBUTION WIDTH 14.7 % (10.0-14.5); WHITE BLOOD COUNT 25.4 10^3/uL (4.3-11.0)
[2020-05-24 05:02] LABS: INR 1.7 (0.8-1.4)
[2020-05-24 05:05] LABS: POTASSIUM 4.5 MMOL/L (3.6-5.0)
[2020-05-24 05:06] LABS: CALCIUM 8.6 MG/DL (8.5-10.1)
[2020-05-24 05:10] LABS: CREATININE SERUM 2.51 MG/DL (0.60-1.30); PHOSPHORUS 4.5 MG/DL (2.3-4.7)
--- NOTE | 2020-05-24 05:58 | NUR ---
Notified Dr. Lehman of the patients critical BUN 119
[2020-05-24] MEDS: dexAMETHasone 6 MG TAB (DECADRON) PO SCH (06:38)
[2020-05-24 08:00] VITALS: BP 125/84
[2020-05-24] MEDS: SODIUM BICARBONATE 650 MG TABLET (NON-FORMULARY) PO SCH ×2 (09:48→12:21)
[2020-05-24] MEDS: CALCIUM ACETATE 667 MG CAP (PHOSLO) PO SCH ×2 (09:48→12:21)
[2020-05-24] MEDS: SENNA W/DOCUSATE (SENOKOT S) TABLET PO SCH (09:49)
[2020-05-24] MEDS: CARVEDILOL 3.125 MG (COREG) TABLET PO SCH (09:49)
[2020-05-24] MEDS: FUROSEMIDE 40 MG (LASIX) TAB PO SCH ×2 (09:49→13:51)
[2020-05-24] MEDS: KCL 10 MEQ TAB (MICRO K) PO SCH (09:49)
[2020-05-24] MEDS: polyethylene glycoL POWDER 17 GM (MIRALAX) PACK PO SCH (09:50)
[2020-05-24 11:30] VITALS: BP 124/85
--- NOTE | 2020-05-24 11:35 | Physical Therapy Daily Note ---
PT Daily Note-Current Subjective Patient in recliner pre tx, agrees to PT, no complaints of pain. Patient is very drowsy. Appearance Patient in recliner post tx with nurse call, phone, tray, legs elevated, chair alarm on. Mental Status Patient Orientation: Person, Place, Situation Attachments: Oxygen Transfers SCALE: Activities may be completed with or without assistive devices. 1-Lyzcedsxzt-napruyd completes the activity by him/herself with no assistance from a helper. 5-Set-up or Clean-up Assistance-helper sets up or cleans up; patient completes activity. [place] assists only prior to or following the activity. 4-Supervision or Touching Assistance-helper provides verbal cues and/or touching/steadying and/or contact guard assistance as patient completes activity. Assistance may be provided throughout the activity or intermittently. 3-Partial/Moderate Assistance-helper does LESS THAN HALF the effort. [place] lifts, holds or supports trunk or limbs, but provides less than half the effort. 2-Substantial/Maximal Assistance-helper does MORE THAN HALF the effort. [place] lifts or holds trunk or limbs and provides more than half the effort. 5-Zrzijjrma-hbfudf does ALL the effort. Patient does none of the effort to complete the activity. Or, the assistance of 2 or more helpers is required for the patient to complete the activity. If activity was not attempted, code reason: 7-Patient Refused. 9-Not Applicable-not attempted and the patient did not perform the activity before the current illness, exacerbation or injury. 10-Not Attempted due to Environmental Limitations-(lack of equipment, weather restraints, etc.). 88-Not Attempted due to Medical Conditions or Safety Concerns. Sit to Stand (QC): 3 Chair/Ezx-yj-Iaivl Xfer(QC): 3 Patient needs to use the restroom, ambulates to it, needs assist with getting brief off and back on, she can wipe herself. Gait Training Distance: 10'x2 Walk 10 feet (QC): 3 Gait Persons Needed: 1 Gait Assistive Device: FWW Patient needs assist guiding walker, she is very drowsy, very slow ambulation, she barely makes it back to the recliner, needs assist the whole time guiding walker Exercises Seated Therapy Exercises: Ankle pumps, Long arc quads Seated Reps: 20 Treatments toileting, transfers, ambulation, LE exercise Assessment Current Status: Poor Progress Patient seems to be getting weaker but it could just be her drowsiness, no SOB with activity. PT Valve Technician Goals Group Home Goals PT Group Home Goals Time Frame: May 29, 2020 Roll Left & Right (QC): 6 Sit to Lying (QC): 6 Lying-Sitting on Side/Bed(QC): 6 Sit to Stand (QC): 6 Chair/Tgh-ds-Gxoyn Xfer(QC): 6 Walk 10 feet (QC): 6 Walk 50ft with 2 Turns (QC): 6 PT Plan Problem List Problem List: Activity Tolerance, Functional Strength, Safety, Balance, Gait, Transfer, Bed Mobility, ROM Treatment/Plan Treatment Plan: Continue Plan of Care Treatment Plan: Bed Mobility, Education, Functional Activity Linda, Functional Strength, Gait, Safety, Therapeutic Exercise, Transfers Treatment Duration: May 29, 2020 Frequency: 6 times per week Estimated Hrs Per Day: .25 hour per day Patient and/or Family Agrees t: Yes Safety Risks/Education Patient Education: Gait Training, Transfer Techniques, Correct Positioning, Safety Issues Teaching Recipient: Patient Teaching Methods: Demonstration, Discussion Response to Teaching: Reinforcement Needed Time/GCodes Time In: 1107 Time Out: 1124 Total Billed Treatment Time: 17 Total Billed Treatment 1 visit FA OLE GRAY PT May 24, 2020 11:35
--- NOTE | 2020-05-24 12:01 | NUR ---
REPORT GIVEN TO MATT WALLS AT THIS TIME IN [facility] THIS IS THE HOSPITAL SHE WILL TRANSFER TO PER DR. BLAKELY.
--- NOTE | 2020-05-24 13:03 | NUR ---
THIS RN MADE FIRST ATTEMPT TO CALL REPORT TO MATT KENDRICK WHO WILL ASSUME CARE OF THIS PATIENT AT [facility] WITH NO SUCCESS. PHONE NUMBER LEFT WITH FLOOR STAFF. THIS RN WILL WAIT FOR RETURN PHONE CALL TO GIVE REPORT AGAIN THE PATIENT FLOOR HAS CHANGED TO PCU .
--- NOTE | 2020-05-24 13:11 | Discharge Summary ---
Discharge Summary Hospital Course Was the Problem List Reviewed?: Yes Problems/Dx: (1) COVID-19 Status: Acute (2) Acute kidney injury superimposed on chronic kidney disease Status: Acute Hospital Course Date of Admission: May 17, 2020 at 20:23 Admission Diagnosis : COVID-19 Family Physician/Provider: No,Local Physician Date of Discharge: 05/24/20 Discharge Diagnosis: COVID-19, acute kidney injury superimposed on chronic kidney disease Hospital Course: Suzanne De Leon is a 62-year-old female who presented with a fall and decreased appetite and was admitted with COVID-19. She was treated with Decadron and improved rapidly. She required a minimal amount of supplemental oxygen throughout her stay. Her course is complicated by an acute kidney injury superimposed on chronic kidney disease. Her kidney function continued to deteriorate and she developed a uremic encephalopathy. Transfer was attempted to multiple facilities which were on diversion including [facility] in [place], [facility] in [facility], [facility] in [facility]. She was finally acce pted to [facility] in [place]. Labs and Pending Lab Test: Laboratory Tests 05/23/20 16:39: Glucometer 363H 05/23/20 19:33: Glucometer 362H 05/24/20 00:46: Glucometer 167H 05/24/20 03:05: Glucometer 122H 05/24/20 04:38: White Blood Count 25.4H, Red Blood Count 3.49L, Hemoglobin 11.0L, Hematocrit 33L , Mean Corpuscular Volume 95, Mean Corpuscular Hemoglobin 32, Mean Corpuscular Hemoglobin Concent 33, Red Cell Distribution Width 14.7H, Platelet Count 232, Mean Platelet Volume 12.3H, Prothrombin Time 20.0H, INR Comment 1.7H, Sodium Level 136, Potassium Level 4.5, Chloride Level 100, Carbon Dioxide Level 20L, Anion Gap 16H, Blood Urea Nitrogen 119*H, Creatinine 2.51H, Estimat Glomerular Filtration Rate 19, BUN/Creatinine Ratio 47, Glucose Level 96, Calcium Level 8.6, Phosphorus Level 4.5 05/24/20 09:14: Glucometer 104 05/24/20 11:29: Glucometer 196H Home Meds Active Reported Lantus (Insulin Glargine,Hum.rec.anlog) 100 Unit/1 Ml Vial 55 Unit SQ HS Tums Ultra (Calcium Carbonate) 400 Mg Tab.chew 400-800 Mg PO QID PRN Tylenol (Acetaminophen) 325 Mg Capsule 650 Mg PO Q8H PRN Vitamin D3 (Cholecalciferol (Vitamin D3)) 25 Mcg Capsule 25 Mcg PO DAILY Furosemide 40 Mg Tablet 40 Mg PO 0800,1400 LAST FILLED 01-03-2020 #180-90 DAY SUPPLY Carvedilol 3.125 Mg Tablet 3.125 Mg PO BID Spironolactone 25 Mg Tablet 25 Mg PO DAILY Novolog Flexpen (Insulin Aspart) 300 Units/3 Ml Solution Units SC SLIDING/SCALE Warfarin Sodium 1 Mg Tablet 0.5 Mg PO SUN,SAT TAKES 4MG ON FRI,FRI,FRI,FRI &FRIDAY TAKES 4.5MG (USES OF A 1MG TAB AND A 4MG TAB) ON SUN,SAT Pravastatin Sodium 40 Mg Tablet 40 Mg PO HS Warfarin Sodium 4 Mg Tablet 4 Mg PO DAILY TAKES 4MG ON FRI,FRI,FRI,FRI &FRIDAY TAKES 4.5MG (USES OF A 1MG TAB AND A 4MG TAB) ON SUN,SAT Loratadine 10 Mg Tablet 10 Mg PO DAILY Sodium Bicarbonate 325 Mg Tablet 325 Mg PO BID Ferrous Sulfate 325 Mg Tablet 325 Mg PO BID Lisinopril 5 Mg Tablet 5 Mg PO DAILY Allopurinol 300 Mg Tablet 300 Mg PO DAILY Fish Oil 1,000 mg Softgel (Ovid-3/Dha/Epa/Fish Oil) 1 Each Capsule 1,000 Mg PO BID K-Tab ER (Potassium Chloride) 10 Meq Tablet.er 20 Meq PO DAILY Assessment/Pt Instructions patient transferred to [facility] in [place] Discharge Planning: >30 minutes discharge planning Discharge Instructions Discharge Diet: Other Diet (renal diet) Activity as Tolerated: Yes Discharge Physical Examination Vital Signs Vital Signs Date Time Temp Pulse Resp B/P (MAP) Pulse Ox O2 Delivery O2 Flow Rate FiO2 05/24/20 11:30 35.0 88 20 124/85 (98) 97 Nasal Cannula 2.00 05/23/20 15:46 24 General Appearance: No Apparent Distress, Chronically ill Respiratory: Lungs Clear, Normal Breath Sounds, No Respiratory Distress Cardiovascular: Regular Rate, Rhythm, No Edema, No Murmur Gastrointestinal: Normal Bowel Sounds, Non Tender, Soft Extremity: Normal Inspection, Non Tender, No Pedal Edema Skin: Normal Color, Warm/Dry Neurologic/Psychiatric: Alert, No Motor/Sensory Deficits, Normal Mood/Affect, Disoriented Allergies: Coded Allergies: hydrocodone (Verified Allergy, Severe, Vomiting, 05/17/20) Copy Copies To 1: [facility] Discharge Summary Date of Admission May 17, 2020 at 20:23 Date of Discharge Discharge Date: May 24, 2020 Discharge Time: 13:10 Admission Diagnosis COVID-19 Discharge Diagnosis COVID-19, WILLAM superimposed on CKD (1) COVID-19 Status: Acute (2) Acute kidney injury superimposed on chronic kidney disease Status: Acute Clinical Quality Measures DVT/VTE Risk/Contraindication: Risk Factor Score Per Nursin RFS Level Per Nursing on Admit: 4+=Very High JEROD BLAKELY MD May 24, 2020 13:06
--- NOTE | 2020-05-24 13:43 | NUR ---
MATT KENDRICK FROM [facility] ( [facility]) JUST RETURNED THE CALL TO THIS RN FOR REPORT. REPORT GIVEN TO HER AT THIS TIME. THIS RN WILL CONT TO MONITOR THIS PATIENT THROUGHOUT THE REMAINDER OF HER STAY. SHE WILL TRANSPORT VIA EMS TO [facility].
--- NOTE | 2020-05-24 14:50 | NUR ---
CM/SS finalized discharge plan. Plan: Patient is being transferred to [facility] ([phone]). She will be transported by [facility] in [place]. CM/SS spoke with Will at [place] [facility]. He reports his crew will be here within the Hour. CM/SS notified physician and nurse. CM/SS contacted patient's Brother Tip to give an update this a.m. prior to transfer. CM/SS informed him that patient signed the release for medical records and this sw faxed to Medical Records. He verbalized understanding. CM/SS contacted Tip for an update. CM/SS informed him that patient would be transferred for dialysis. The patient's physician attempted to get patient transferred to [facility], and [facility]; however, they are all currently on diversion. The physician notified Tip. He verbalized understanding that [facility] was the only accepting hospital at this time. No further needs.
[2020-05-24 15:50] VITALS: BP 138/84
[2020-05-24 16:55] VITALS: BP 138/84
== END 2020-05-24 16:55 | disposition short-term general hospital (02) | DRG 178 ==
LOC: CSD 20:23 → ICU 05-18 08:30 → 4TH 05-19 09:32
PROVIDERS: ADMIT Internal Medicine; ATTEND Internal Medicine
DX: U07.1 COVID-19 (principal); N17.9 Acute kidney failure, unspecified; E87.2 Acidosis; E87.1 Hypo-osmolality and hyponatremia; I13.0 Hypertensive heart and chronic kidney disease with heart failure and stage 1 through stage 4 chronic kidney disease, or unspecified chronic kidney disease; F05 Delirium due to known physiological condition; I50.9 Heart failure, unspecified; E11.22 Type 2 diabetes mellitus with diabetic chronic kidney disease; N18.9 Chronic kidney disease, unspecified; E78.5 Hyperlipidemia, unspecified; R09.02 Hypoxemia; I95.9 Hypotension, unspecified; D64.9 Anemia, unspecified; Z95.810 Presence of automatic (implantable) cardiac defibrillator; Z79.4 Long term (current) use of insulin
CPT/HCPCS: 36415; 36600; 71045; 76700; 80048; 80053; 81000; 82570; 82728; 82805; 82962; 83605; 83735; 83880; 84100; 84145; 84156; 84300; 84540; 85007; 85025; 85027; 85379; 85610; 86850; 86900; 86901; 87449; 87899; 94640; 94760